=== PATIENT | male | born 1970 | race Caucasian/White ===

== ENCOUNTER 2020-11-25 12:12 | Emergency (ER) | payer BC, SELFPAY ==
--- NOTE | ~2020-11-25 | XR_ITS ---
EXAMINATION: XR chest 2V EXAM DATE: 11/25/2020 12:39 INDICATION: Chest pressure. TECHNIQUE: Frontal and lateral projections of the chest obtained and reviewed. There is no prior nathalie dy for comparison. FINDINGS: The lungs are clear. There are no pleural effusions. The cardiomediastinal silhouette is within normal limits. There is no pneumothorax suspected. The bones and soft tissues are unremarkab le. IMPRESSION: No acute cardiopulmonary findings. Reviewed, dictated and finalized at location A.
--- NOTE | 2020-11-25 12:17 | ED.URI ---
HPI - URI/Sore Throat General Chief Complaint: Shortness of Breath/Dyspnea Stated Complaint: sob/light headed/sinus pressure Time Seen by Provider: 11/25/20 12:17 Source: patient and RN notes reviewed Mode of arrival: ambulatory Limitations: no limitations History of Present Illness HPI Narrative: 50-year-old male presents to the [facility] with complaints of shortness of breath, lightheadedness and sinus pressure. Patient states that he was playing pickle ball this morning when he just could not catch his breath. Had some chest tightness and lightheadedness. States he almost felt hung over. Denies any chest pain. Related Data Allergies Allergy/AdvReac Type Severity Reaction Status Date / Time No Known Allergies Allergy Verified 04/02/19 09:15 Review of Systems Review of Systems: All systems reviewed & are unremarkable except as noted in HPI and below Constitutional: Constitutional: Reports no additional constitutional complaints, Denies chills and Denies fever(s) Eyes: Eyes: Reports no additional eye complaints ENT: Reports as per HPI and Reports nasal congestion Cardiovascular: Cardiovascular: Reports as per HPI, Denies chest pain, Reports rapid heart rate and Denies radiating jaw, neck or arm pain Respiratory: Respiratory: Reports as per HPI, Reports dyspnea and Denies wheezing Gastrointestinal: Gastrointestinal: Reports no additional gastrointestinal complaints, Denies abdominal pain, Denies nausea and Denies vomiting Musculoskeletal: Musculoskeletal: Reports no additional musculoskeletal complaints Integumentary/Breasts: Skin/Breast: Reports system reviewed and no additional complaints, except as docu Neurologic: Reports system reviewed and no additional complaints, except as documented Psychiatric: Psychiatric: Reports no additional psychiatric complaints Allergic/Immunologic: Allergic/Immunologic: Reports no additional allergic/immunologic complaints [facility] Past Medical History Medical History (Updated 11/25/20 @ 12:59 by Grace Vicente) Erectile dysfunction Lumbar radiculopathy, right Nasal septal deviation Surgical History Surgical History History of vasectomy Family History Family History Grandparent Family history of cardiovascular disease Social History Social History Smoking status: Never smoker Second hand tobacco smoke exposure: No Alcohol intake: current Comments At the time of my signature, I reviewed and agree with the nursing past medical, surgical, social, and family history. There is no relevant family history pertinent to the patient complaint. Exam Const: General: healthy appearing, no acute distress and alert Nutritional Appearance: well nourished Orientation/consciousness: patient oriented x3 Limitations: no limitations HENMT: Head: normal to inspection Ears: external ears normal, TM's normal bilaterally and EAC's normal Eyes: Conjunctivae: conjunctivae normal Pupils: Equal, round and reactive pupils present Neck: Neck: normal visual inspection, no lymphadenopathy and no meningeal signs Chest: Chest palpation & inspection: normal inspection of the chest Resp: Effort & Inspection: normal respiratory effort and no use of accessory muscles Auscultation: clear to auscultation bilaterally, no crackles, no rales, no rhonchi and no wheezes Cardio: Jugular venous distension: no JVD Rate: tachycardic Rhythm: abnormal rhythm irregularly irregular Peripheral pulses: Peripheral pulses 2+ throughout GI: GI Palp: Yes Soft to palpation and No Tenderness to palpation present (GI) Back/Spine/Pelvis: Back: no CVA tenderness Skin: General skin exam: normal color Rashes: no rashes Wounds: no wounds Neuro: General: patient oriented x3, moves all extremities, no meningeal signs and no focal motor deficits Speech: normal sp
[2020-11-25 12:22] VITALS: BP 119/80; PULSE 94; RESP 16; TEMP 36.1; O2SAT 98
--- NOTE | 2020-11-25 12:25 | ECG_ITS ---
Measurements Intervals [place] Rate: 131 P: MT: 0 QRS: -11 QRSD: 87 T: 11 QT: 272 QTc: 403 Interpretive Statements ATRIAL FIBRILLATION WITH RAPID VENTRICULAR RESPONSE INCOMPLETE RIGHT BUNDLE BRANCH BLOCK BORDERLINE T WAVE ABNORMALITY- INFERIOR LEADS ABNORMAL ECG Electronically Signed On 11-25-2020 13:10:53 CDT by Derrick Vera D.O.
== END 2020-11-25 13:05 | disposition short-term general hospital (02) ==
PROVIDERS: Emergency Provider Nurse Practitioner; PCP Family Medicine
DX: I48.91 Unspecified atrial fibrillation (principal); Z98.52 Vasectomy status
CPT/HCPCS: 71046; 93005; 99215; G0463

== ENCOUNTER 2020-11-25 13:10 | Observation (INO) | payer BC, SELFPAY ==
[2020-11-25] VITALS (12 sets, daily range): BP systolic 111–121; BP diastolic 61–103; PULSE 96–158; RESP 16–24; TEMP 36.1–37.3; O2SAT 97–100; BMI 31.6
--- NOTE | ~2020-11-25 | CT_ITS ---
EXAMINATION: CTA chest PE protocol DATE: 11/25/2020 14:48 INDICATION: Recent long travel. Atrial fibrillation with rapid ventricular response. TECHNIQUE: Computed tomography angiography (CTA) of the chest was performed with 100 mL Omnipaque-350 intravenous contrast timed to evaluate the pulmonary arteries. Coronal maximum intensity projection 3D-reconstructions were created by the technologist. Automated exposure control and iterative reconst ruction technique were employed. Exam dose: 743.83 mGy-cm total exam DLP. COMPARISON: 11/25/2020 PA and lateral chest FINDINGS: There is diagnostic contrast enhancement of the pulmonary arteries and no evidence of pulmo nary embolism. No thoracic aortic aneurysm or dissection. Borderline heart size. No pericardial or pleural effusion. No hilar or mediastinal mass lesion or lym phadenopathy is detected. No pulmonary consolidation or pulmonary mass lesion is evident. Incidentally noted is cholelithiasis. No gallbladder wall thickening or pericholecystic fluid or fat stranding. Normal morphology of the adrenal glands. Small sliding hiatal hernia. Included skeletal structures are unremarkable. IMPRESSION: No evidence of pulmonary embolism Reviewed, dictated and finalized at Location A. Reviewed, dictated and finalized at location B.
--- NOTE | 2020-11-25 13:12 | ECG_ITS ---
Measurements Intervals [place] Rate: 154 P: MD: 0 QRS: -15 QRSD: 96 T: 4 QT: 257 QTc: 412 Interpretive Statements ATRIAL FIBRILLATION WITH RAPID VENTRICULAR RESPONSE CANNOT RULE OUT SEPTAL INFARCT, AGE INDETERMINATE ABNORMAL ECG Electronically Signed On 11-25-2020 15:04:46 CDT by Derrick Vera D.O.
--- NOTE | 2020-11-25 13:12 | ED.CHESTPAIN ---
HPI - Chest Pain General Chief Complaint: Chest Pain Stated Complaint: rapid heart rate Source: patient Mode of arrival: ambulatory Limitations: no limitations History of Present Illness HPI narrative: Patient is a 50-year-old previously healthy male presenting from urgent care for evaluation of palpitations, found to be in atrial fibrillation with rapid ventricular response at the urgent care this morning. Patient reports that he was playing pickle ball, afterwards felt acute onset of palpitations with associated shortness of breath and lightheadedness. No no significant chest pain. Patient states that this may have occurred once previously but resolved on its own and had less severe symptoms with it. Patient has no otherwise known history of cardiac disease. No history of myocardial infarction. Patient does endorse weekly drinking including 6 alcoholic beverages last night. No nausea or vomiting. No history of thyroid disorder. Patient has a history of Covid in 2019. Related Data Home Medications Medication Instructions Recorded Confirmed No Home Medications 11/25/20 11/25/20 Allergies Allergy/AdvReac Type Severity Reaction Status Date / Time No Known Allergies Allergy Verified 11/25/20 13:31 Review of Systems Review of Systems: CONSTITUTIONAL: Denies fever, chills, or sweats. EYES: Denies visual changes, redness, or discharge. ENT: Denies rhinorrhea, congestion, sore throat, or otalgia. CARDIOVASCULAR: Denies chest pain, reports palpitation and denies edema RESPIRATORY: Denies cough, reports dyspnea GASTROINTESTINAL: Denies abdominal pain, nausea, vomiting, or diarrhea. GENITOURINARY: Denies dysuria or hematuria. SKIN: Denies rash or itching. MUSCULOSKELETAL: Denies back pain, joint pain, or myalgia. NEUROLOGIC: Denies headache, numbness, or weakness. Reports lightheadedness PMFSH Past Medical History Medical History (Updated 11/25/20 @ 17:53 by Jackie Alvarez MD) Erectile dysfunction Lumbar radiculopathy, right Nasal septal deviation Surgical History Surgical History History of vasectomy Family History Family History Grandparent Family history of cardiovascular disease Social History Social History Smoking status: Never smoker Second hand tobacco smoke exposure: No Alcohol intake: current Exam Narrative: GENERAL: Awake, alert, conversant HEAD: Normocephalic, atraumatic. EYES: PERRLA and EOMI. ENT: Nares clear, no rhinorrhea or epistaxis. Mucous membranes moist. NECK: Supple. CHEST: No respiratory distress, breathing even and non labored HEART: Tachycardic, irregularly irregular, consistent in atrial fibrillation with rapid ventricular response ABDOMEN:Non distended, non tender EXTREMITIES: Normal range of motion. No edema. SKIN: Warm, dry, no rash. NEURO:No focal deficits. Alert and oriented x3 Course Vital Signs Vital signs: Vital Signs Temperature 37.3 C 11/25/20 13:27 Pulse Rate 158 H 11/25/20 13:27 Respiratory Rate 16 11/25/20 13:27 Blood Pressure 120/90 11/25/20 13:27 Pulse Oximetry 97 11/25/20 13:27 Temperature 37.3 C 11/25/20 13:27 Pulse Rate 115 H 11/25/20 17:54 Respiratory Rate 20 11/25/20 17:54 Blood Pressure 117/103 H 11/25/20 17:54 Pulse Oximetry 98 11/25/20 17:54 MDM - Chest Pain MDM Narrative Medical decision making narrative: Patient sent in for evaluation of palpitations after found to be in A. fib with rapid ventricular response at an urgent care. At the time of presentation, patient is in A. fib with RVR, normotensive. No chest pain. IV access obtained and labs are drawn. Patient was given IV metoprolol, IV fluids, magnesium with improvement in his rate. Patient does have an elevated troponin that up trended on the 3-hour troponin. I did obtain a CTA
[2020-11-25 13:37] LABS: Basophils Percent Auto 0.3 % (0.2-1.2); Eosinophils Percent Auto 0.3 % (0-4.4); Hematocrit 44.3 % (42.0-52.0); Immature Granulocyte Absolute 0.03 K/mm3 (0.00-0.031); Immature Granulocyte Percent A 0.3 % (0-0.5); Lymphocytes Absolute Auto 1.98 K/mm3 (0.9-3.2); Lymphocytes Percent Auto 20.7 % (18.3-44.2); Mean Corpuscular HGB Conc 33.9 g/dl (32-36); Mean Corpuscular Hemoglobin 29.5 pg (26-34); Mean Platelet Volume 9.5 fl (7.4-10.4); Monocytes Absolute Auto 0.8 K/mm3 (0.1-0.6); Monocytes Percent Auto 8.1 % (2.6-8.5); Neutrophils Absolute Auto 6.7 K/mm3 (1.3-6.7); Neutrophils Percent Auto 70.3 % (45.5-73.1); Platelet Count Result 278 k/mm3 (150-375); Red Blood Count 5.09 M/mm3 (4.6-6.20); Red Cell Distribution Width 12.8 % (11.5-14.5); White Blood Count 9.6 K/mm3 (4.5-10.0)
[2020-11-25 13:50] LABS: Anion Gap 14 mmol/L (8-16); Blood Urea Nitrogen 14 mg/dL (9-20); Calcium 10.2 mg/dL (8.4-10.2); Carbon Dioxide 26 mmol/L (22-30); Chloride 102 mmol/L (98-107); Estimated CRCL calculation 101 ml/min; Estimated Glomerular Filt Rate > 60; Glucose 98 mg/dL (65-110); Potassium 4.7 mmol/L (3.4-5.0); Sodium 142 mmol/L (137-145)
[2020-11-25 13:51] LABS: INR 0.9; Prothrombin Time 12.1 Seconds (11.1-14.7)
[2020-11-25 13:52] LABS: Partial Thromboplastin Time 25.7 SECONDS (22.3-36.8)
[2020-11-25] MEDS: SODIUM CHLORIDE 0.9% IV 1,000 ML 999 ML IV CONT (13:54)
[2020-11-25] MEDS: MAGNESIUM SULF 2 GM/WATER 50ML 2 GM/50 ML BAG IVPB (13:54)
[2020-11-25] MEDS: METOPROLOL TARTRATE INJ 5 MG/5 ML VIAL IV PUSH ×2 (13:54→15:40)
[2020-11-25 14:00] LABS: NT Pro B Type Natriuretic Pept 63 pg/mL (5-100)
[2020-11-25 14:35] LABS: Troponin I 0.054 ng/mL (0.000-0.034)
[2020-11-25] MEDS: ASPIRIN 81 MG CHEWABLE TABLET 324 MG PO (15:39)
[2020-11-25] MEDS: METOPROLOL TARTRATE 25 MG TABLET PO (15:39)
[2020-11-25 16:03] LABS: Troponin I 0.074 ng/mL (0.000-0.034)
--- NOTE | 2020-11-25 18:16 | ADMGEN ---
This patient, Amrit Maher, was admitted to IMU Room 203-01. Patient/family oriented to hospital policies and general routines including ID bracelet, bed and alarms, visiting hours, pain management, procedures, bathroom and other care routines, personal items, smoking policy, room service/diet, and visiting hours. Information on how to activate the Rapid Response Team has been discussed. Patient/Family are encouraged to report perceived risks to care and to ask questions if they do not understand what they are told or what they should do.
--- NOTE | 2020-11-25 20:17 | PM.IMHP ---
H&P: HPI History of Present Illness Date/Time: 11/25/20 20:17 this is a 50-year-old male patient to has no previous medical history. The patient admits to using tobacco products but he chews tobacco and has been using nicotine gum. The patient stated that today he was playing pickle ball when he became very short of breath. The patient stated this was similar to when he was tested positive for COVID back in December of 2019. The patient stated that he felt palpitations and was short of breath. The patient stated that he did not have any chest pain. He also felt dizzy at the time. He denies any fever chills. Nausea or vomiting or diarrhea. The patient admits to drinking 6 beers yesterday and does occasionally use some marijuana but does not use any other street drugs. Patient presented to the urgent care today for evaluation of palpitations. The patient was found to be in atrial fibrillation with rapid ventricular response at the urgent care this morning. The patient initially was given Decadron, IV fluids, magnesium sulfate, and metoprolol IV push x2 and oral metoprolol. The patient remains in the 120-1 30s. One time he got up to 140-150. This was after receiving the metoprolol. I did give the patient IV push Cardizem and ordered a drip. Troponin was 0.05 and then 0.074. CTA of the chest was read as no evidence of pulmonary embolism. Chest x-ray was read as no acute cardiopulmonary finding. The patient is being admitted to observation status on the date of service of 11/25/2020 Chief Complaint: Palpitations Review of Systems Review of Systems: All systems reviewed & are unremarkable except as noted in HPI and below Constitutional: Constitutional: Reports as per HPI and Reports no additional constitutional complaints Eyes: Eyes: Reports as per HPI and Reports no additional eye complaints ENT: Reports system reviewed and no additional complaints, except as documented and Reports Normal hearing present Cardiovascular: Cardiovascular: Reports no additional cardiovascular complaints Respiratory: Respiratory: Reports no additional respiratory complaints and Reports no additional respiratory complaints Gastrointestinal: Gastrointestinal: Reports as per HPI and Reports no additional gastrointestinal complaints Musculoskeletal: Musculoskeletal: Reports no additional musculoskeletal complaints Integumentary/Breasts: Skin/Breast: Reports system reviewed and no additional complaints, except as docu and Reports as per HPI Neurologic: Reports system reviewed and no additional complaints, except as documented, Reports as per HPI and Reports Normal hearing present Psychiatric: Psychiatric: Reports no additional psychiatric complaints and Reports as per HPI Endocrine: Endocrine: Reports no additional endocrine complaints Hematologic/Lymphatic: Hematologic/Lymphatic: Reports no additional hematologic/lymphatic complaints Allergic/Immunologic: Allergic/Immunologic: Reports no additional allergic/immunologic complaints [facility] Past Medical History Medical History (Updated 11/25/20 @ 20:29 by Rima Allen NP) Erectile dysfunction Lumbar radiculopathy, right Nasal septal deviation Surgical History Surgical History (Updated 11/25/20 @ 20:22 by Rima Allen NP) History of nasal septoplasty History of vasectomy Family History Family History (Updated 11/25/20 @ 20:23 by Rima Allen NP) Grandparent Family history of cardiovascular disease Father Hypertension Social History Social History Social History: 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 His is the durable power defense attorney for healthcare. The patient desires to be a full code. The patient states that he does occasionally use marijuana. He does not use any other street drugs. The patient has been using nicotine gum as he has been using chewing tobacco for many years.
[2020-11-25] MEDS: ACETAMINOPHEN 325 MG TABLET 650 MG PO (20:52)
[2020-11-25] MEDS: dilTIAZem HCl INJ 25 MG/5 ML VIAL IV PUSH (20:53)
--- NOTE | 2020-11-25 21:19 | PM.CNCAR ---
Assessment and Plan Assessment and plan (1) Atrial fibrillation with rapid ventricular response: Code(s): I48.91 - Unspecified atrial fibrillation Status: Acute Assessment and Plan: Patient admitted with AFib RVR, possibly starting this morning although since the patient does not sense any heart irregularity I cannot be sure. May have had an episode a couple months ago while cutting grass when he felt very dyspneic. Had heavy alcohol intake yesterday which may be contributing, and he does snore some needs to be screened for sleep apnea. However he does not appear to have any underlying cardiovascular disease. Discussed atrial fibrillation, causes, and treatment in detail. We will see how he does overnight then we can proceed with a DIEUDONNE guided cardioversion versus rate control and anticoagulation, follow-up in the office and see if patient may need an elective outpatient cardioversion if sinus rhythm is not restored pharmacologically. Continue Lovenox, probably switch to Xarelto tomorrow evening Echo Change IV Cardizem to p.o. Cardizem 30 mg Q8H (2) Elevated troponin: Code(s): R77.8 - Other specified abnormalities of plasma proteins Status: Acute Assessment and Plan: Minimally elevated troponin, due to AFib RVR, no evidence of ACS. (3) Snoring: Code(s): R06.83 - Snoring Status: Acute Assessment and Plan: R/O MAHAD w/ Apnea Link (4) Medication management: Code(s): Z79.899 - Other snf (current) drug therapy Status: Acute Assessment and Plan: History of Present Illness History of Present Illness Consult date/time: 11/25/20 21:19 Requesting physician: Rima Allen NP Reason For Visit: a fib with rvr,elevated troponin Narrative: Mr. Amrit Maher is a 50-year-old white male whom I was asked to see at the request of the hospitalist for my advice and opinion regarding his new onset AFib, in consultation. Mr. Maher was playing pickleball this morning and felt very bad with that with shortness of breath, and being significantly a out of breath. He sort of felt his heart pounding but that did not seem to be unusual with exercise or activity. He thought something was wrong with his lungs and went to Urgent Care where he was found to have AFib RVR. He did not really notice any palpitations or chest pain. Yesterday seemed a normal day for him and he last played pickleball about 1/2 weeks ago. He did note that when he cut the grass about 2 months ago he had unusual CHEN. He was admitted and started on a Cardizem drip and Lovenox. He is feeling well now. The patient does snore a lot but no known sleep apnea. He did have about 6 drinks yesterday but normally does not drink excessively and drinks just on weekends. Two cups of coffee daily. No hypertension, diabetes, elevated cholesterol, history of thyroid disease, or bleeding problems. His mother has atrial fibrillation. Review of Systems Constitutional: Constitutional: Reports fatigue and Reports lethargy Eyes: Eyes: Reports no additional eye complaints ENT: Denies epistaxis Cardiovascular: Cardiovascular: Denies chest pain, Denies diaphoresis, Denies pedal edema, Denies leg edema, Denies lightheadedness and Reports palpitations Respiratory: Respiratory: Denies cough, Reports dyspnea and Reports dyspnea on exertion Gastrointestinal: Gastrointestinal: Denies abdominal pain and Denies hematochezia Genitourinary: Genitourinary: Denies hematuria Musculoskeletal: Musculoskeletal: Reports arthralgias (Knee pain) Integumentary/Breasts: Skin/Breast: Denies rash Neurologic: Denies confusion Psychiatric: Psychiatric: Denies behavioral changes PMFSH Past Medical History Medical
[2020-11-25] MEDS: ENOXAPARIN 120 MG/0.8 ML SYRINGE 110 MG SUB-Q (21:24)
[2020-11-25] MEDS: dilTIAZem HCL 30 MG TABLET PO (23:15)
[2020-11-26] VITALS (7 sets, daily range): BP systolic 120–128; BP diastolic 73–74; PULSE 73–94; RESP 16–20; TEMP 36.3–36.4; O2SAT 97–100
--- NOTE | 2020-11-26 | ECHO_ITS ---
Patient Info Name: Amrit Maher Age: 50 years : 1970 Gender: Male Ht: 73 in Wt: 239 lbs BSA: 2.39 m2 HR: 65 bpm BP: 111 / 61 mmHg Heart Rhythm: Sinus Rhythm Exam Date: 11/26/2020 9:27 AM Exam Location: [facility] Patient Status: Outpatient Admit Date: 11/25/2020 Staff Ordering Physician: Rima Allen NP Skein Tier: Damion Iglesias RDCS, RT Attending Provider: Mana Kilpatrick MD Referring Physician: Tiffany JOSÉ; Exam Type: CA echo doppler color flow Study Info Indications I48.0 - Paroxysmal atrial fibrillation Complete two-dimensional, color flow and Doppler transthoracic echocardiogram is performed. Strain analysis performed. Summary 1. Complete two-dimensional, color flow and Doppler transthoracic echocardiogram is performed. 2. Left ventricular systolic function and diastolic function are normal with no regional wall motion abnormalities with an estimated ejection fraction of 60-65%. Calculated ejection fraction 59% Mild left ventricular hypertrophy. Global longitudinal strain is borderline diminished at -17%. 3. Left atrial chamber dimension is mildly enlarged. 4. No significant valve disease. 5. Normal sinus rhythm. Left Ventricle Left ventricular chamber dimension is normal. Left ventricular systolic function is normal, estimated at 60-65%. There is mildly increased left ventricular wall thickness. Left ventricular septal wall motion is normal. The left ventricular diastolic function is normal. Global longitudinal strain is abnormal at -17 %. Left ventricular systolic function and diastolic function are normal with no regional wall motion abnormalities with an estimated ejection fraction of 60-65%. Calculated ejection fraction 59% Mild left ventricular hypertrophy. Global longitudinal strain is borderline diminished at -17%. Right Ventricle Right ventricular chamber dimension is normal. Right ventricular systolic function is normal. Left Atria Left atrial chamber dimension is mildly enlarged. Right Atria Right atrial chamber dimension is normal. Aortic Valve The aortic valve is trileaflet. There is no aortic valve sclerosis. There is no aortic valve stenosis. There is no aortic valve regurgitation. Pulmonic Valve The pulmonic valve is normal. There is no pulmonic valve stenosis. There is trace pulmonic regurgitation. Mitral Valve The mitral valve has normal leaflets. There is no mitral valve stenosis. There is trace mitral valve regurgitation. Tricuspid Valve The tricuspid valve leaflets are normal. There is no significant tricuspid valve stenosis. There is trace tricuspid valve regurgitation. No pulmonary hypertension, estimated pulmonary arterial systolic pressure is Empty. Pericardium/Pleural The pericardium appears normal. There is no pericardial effusion. Inferior Vena Cava Normal inferior vena cava with >50% collapse upon inspiration consistent with Empty right atrial pressure, Empty. Aorta The aortic root size at the sinus of Valsalva is normal. The prox ascending aorta size is normal. Left Ventricular Outflow Tract Name Value Normal LVOT 2D LVOT Diameter 2.3 cm LVOT Doppler
[2020-11-26] MEDS: dilTIAZem HCL 30 MG TABLET PO ×2 (06:32→12:13)
[2020-11-26 06:48] LABS: Basophils Percent Auto 0.4 % (0.2-1.2); Eosinophils Absolute Auto 0.2 K/mm3 (0-0.3); Hematocrit 42.4 % (42.0-52.0); Hemoglobin 14.6 g/dL (14.0-18.0); Immature Granulocyte Absolute 0.01 K/mm3 (0.00-0.031); Immature Granulocyte Percent A 0.1 % (0-0.5); Lymphocytes Absolute Auto 3.17 K/mm3 (0.9-3.2); Mean Corpuscular HGB Conc 34.4 g/dl (32-36); Mean Corpuscular Hemoglobin 29.6 pg (26-34); Mean Platelet Volume 9.5 fl (7.4-10.4); Monocytes Absolute Auto 0.7 K/mm3 (0.1-0.6); Monocytes Percent Auto 9.6 % (2.6-8.5); Neutrophils Absolute Auto 3.2 K/mm3 (1.3-6.7); Neutrophils Percent Auto 43.9 % (45.5-73.1); Platelet Count Result 274 k/mm3 (150-375); Red Blood Count 4.93 M/mm3 (4.6-6.20); Red Cell Distribution Width 12.7 % (11.5-14.5); White Blood Count 7.4 K/mm3 (4.5-10.0)
[2020-11-26 07:03] LABS: Lactic Acid Reflex 1.4 mmol/L (0.7-2.1)
[2020-11-26 07:04] LABS: Alanine Aminotransferase 50 U/L (4-50); Albumin Level 4.8 g/dL (3.5-5.1); Alkaline Phosphatase 56 U/L (38-126); Anion Gap 9 mmol/L (8-16); Aspartate Amino Transferase 32 U/L (17-59); Bilirubin,Total 0.4 mg/dL (0.2-1.3); Blood Urea Nitrogen 17 mg/dL (9-20); Calcium 9.1 mg/dL (8.4-10.2); Carbon Dioxide 30 mmol/L (22-30); Chloride 103 mmol/L (98-107); Estimated CRCL calculation 104 ml/min; Estimated Glomerular Filt Rate > 60; Glucose 119 mg/dL (65-110); Magnesium 2.1 mg/dL (1.6-2.3); Potassium 4.9 mmol/L (3.4-5.0); Sodium 142 mmol/L (137-145)
--- NOTE | 2020-11-26 07:46 | ECG_ITS ---
Measurements Intervals [place] Rate: 75 P: 31 [place]: 143 QRS: -3 QRSD: 106 T: 13 QT: 386 QTc: 434 Interpretive Statements SINUS RHYTHM DELAYED PRECORDIAL R/S TRANSITION BORDERLINE ECG Electronically Signed On 11-26-2020 9:11:17 CDT by Derrick Vera D.O.
[2020-11-26] MEDS: ENOXAPARIN 120 MG/0.8 ML SYRINGE 110 MG SUB-Q (08:13)
--- NOTE | 2020-11-26 08:56 | PM.PNCARD ---
Progress Note: A&P Assessment and Plan (1) Atrial fibrillation with rapid ventricular response: Code(s): I48.91 - Unspecified atrial fibrillation Status: Acute Assessment and Plan: Converted to NSR this morning. OK for discharge after Echo. Has outpatient follow-up visit scheduled. CHADS2 Vasc score is 0, will change patient to aspirin 325 mg daily. Will change Cardizem to: Cardizem CD 120 mg daily. Review treatment of atrial fibrillation; aggressiveness of treatment depends on frequency of AFib and severity of symptoms. Avoid excessive alcohol Consider getting the [employer] balbina or an [employer] smart watch, etc, to monitor for AFib at home. (2) Elevated troponin: Code(s): R77.8 - Other specified abnormalities of plasma proteins Status: Acute Assessment and Plan: Secondary to AFib, no ACS (3) Snoring: Code(s): R06.83 - Snoring Status: Acute Assessment and Plan: Apnea link was strongly positive. Discussed possible sleep apnea with the patient Will need referral to a sleep medicine doctor for further evaluation and treatment. Subjective Date/time seen: 11/26/20 08:56 Interval history: FU new onset a fib RVR Date of Service 11/26/2020: Pt tired but otherwise feeling well. Converted to NSR at 5;15 a.m. Off Cardizem gtt, on po diltiazem Apnea Link was strongly suggestive of MAHAD. Review of Systems Constitutional: Constitutional: Reports fatigue Comments: Didn't sleep well ENT: Reports system reviewed and no additional complaints, except as documented Cardiovascular: Cardiovascular: Denies chest pain, Denies leg edema, Denies lightheadedness and Denies palpitations Respiratory: Respiratory: Denies dyspnea and Denies dyspnea on exertion Gastrointestinal: Gastrointestinal: Reports no additional gastrointestinal complaints Genitourinary: Genitourinary: Reports no additional male genitourinary complaints Musculoskeletal: Musculoskeletal: Reports no additional musculoskeletal complaints Integumentary/Breasts: Skin/Breast: Reports system reviewed and no additional complaints, except as docu Exam Const: General: comfortable and no acute distress Eyes: EOM: EOMs intact bilaterally Neck: Neck: supple Resp: Effort & Inspection: normal respiratory effort Cardio: Rate: regular rate Rhythm: regular rhythm GI: Inspection: non-distended GI Palp: Yes Soft to palpation Skin: General skin exam: normal color Neuro: General: gait normal Cognition (Neuro): normal cognition Speech: normal speech Extrem: General: no edema Psych: Mental Status: mental status grossly normal Objective Data Vital Signs Vital Signs: Vital Signs - 24 hr 11/25/20 13:27 11/25/20 13:54 11/25/20 15:39 Temperature 99.2 F Pulse Rate 158 H 157 H 124 H Respiratory Rate 16 Blood Pressure 120/90 Pulse Oximetry 97 11/25/20 15:40 11/25/20 17:06 11/25/20 17:07 Temperature Pulse Rate 136 H 111 H 112 H Respiratory Rate 24 H Blood Pressure 120/76 Pulse Oximetry 98 11/25/20 17:54 11/25/20 18:32 11/25/20 18:33 Temperature 97.4 F L Pulse Rate 115 H 125 H 108 H Respiratory Rate 20 22 H Blood Pressure 117/103 H 121/77 Pulse Oximetry 98 100 11/25/20 20:00 11/25/20 22:00 11/25/20 23:22 Temperature 97 F L 97.7 F Pulse Rate 129 H 96 98 Respiratory Rate 20 20 Blood Pressure 112/63 111/61 Pulse Oximetry 99 100 11/26/20 00:00 11/26/20 02:00 11/26/20 04:00 Temperature 97.5 F L Pulse Rate 85 83 73 Respiratory Rate 20 Blood Pressure 124/73 Pulse Oximetry 100 11/26/20 06:00 Temperature Pulse Rate 94 Respiratory Rate Blood Pressure Pulse Oximetry Intake/Output Intake/Output: Intake & Output 11/23/20 11/24/20 11/25/20 11/26/20 23:59 23:59 23:59 23:59 Intake Total 1050 Output Total 650 Balance 1050 -650 Meds/Resul
--- NOTE | 2020-11-26 17:31 | PM.DS ---
DS: Admitting Diagnosis Discharge Date 11/26/20 Admitting Diagnosis Atrial fibrillation with rapid ventricular response DS: Discharge Diagnosis Discharge Diagnosis (1) Atrial fibrillation with rapid ventricular response: Code(s): I48.91 - Unspecified atrial fibrillation Status: Acute Assessment and Plan: The patient is AFib with RVR heart rate some 120 so. Patient failed metoprolol. So I started him on a Cardizem drip. Cardiology has been consulted. Although his Antonio Vasc score is low will start him on subcu Lovenox for now. (2) Elevated troponin: Code(s): R77.8 - Other specified abnormalities of plasma proteins Status: Acute Assessment and Plan: Most likely is related to the AFib RVR. Continue to trend. DS: Summary Hospital Course Reason for hospitalization: Palpitations Shortness of breath Hospital Course: This is a 50-year-old gentleman without prior significant medical condition. The patient admits to using tobacco products but he chews tobacco and has been using nicotine gum. The patient stated that today he was playing pickle ball when he became very short of breath. The patient stated this was similar to when he was tested positive for COVID back in December of 2019. The patient stated that he felt palpitations and shortness of breath. He did not have any chest pain. He also felt dizzy at the time. He denies any fever chills. Nausea or vomiting or diarrhea. The patient admits to drinking 6 beers yesterday and does occasionally use some marijuana but does not use any other street drugs. Patient presented to the urgent care today for evaluation of palpitations. The patient was found to be in atrial fibrillation with rapid ventricular response at the urgent care this morning. Hospital course The patient initially was given Decadron, IV fluids, magnesium sulfate, and metoprolol IV push x2 and oral metoprolol. The patient remains in the 120-1 30s. One time he got up to 140-150. This was after receiving the metoprolol. He receives IV push Cardizem followed by cardizem drip. Troponin was 0.05 and then 0.074. CTA of the chest was read as no evidence of pulmonary embolism. Chest x-ray was read as no acute cardiopulmonary finding. The patient is being admitted to observation status on the date of service of 11/25/2020. This morning, he converted to NSR this morning. Echocardogram with mild dilatation of the left atria. He is scheduled for cardiology follow-up visit as an outpatient. CHADS2 Vasc score is 0, he will be discharged on aspirin 325 mg daily. New medication Cardizem CD 120 mg daily. Review treatment of atrial fibrillation; aggressiveness of treatment depends on frequency of AFib and severity of symptoms. Avoid excessive alcohol Consider getting the [employer] mobile balbina or an [employer] smart watch, etc, to monitor for AFib at home. Patient referred to sleep medicine for a sleep study test. Time spent discussing smoking cessation with patient: 3 to 10 minutes Status at Discharge Functional status at discharge: independent ambulation Overall status at discharge: patient is back to baseline Time Spent with Patient Time attestation: Total time spent providing and/or coordinating discharge services: Time spent: Less than 30 minutes Exam Const: General: cooperative, healthy appearing, comfortable, no acute distress, well developed, alert, awake and Physically active Nutritional Appearance: average body habitus and well nourished Orientation/consciousness: oriented to person, oriented to place, oriented to time and patient oriented x3 Limitations: no limitations HENMT: Head: normal to inspection, No palpable skull fracture present, normocephalic and atraumatic Ears: hearing grossly normal bilaterally and external ears normal General nose exam: Normal external nose present Eyes: General: appearance normal, both eyes and all related structures Alignment and Position: alignment normal Perio
== END 2020-11-26 14:15 | disposition home or self-care (01) ==
LOC: ANHED 13:30 → ANHIMU 16:45
PROVIDERS: Nurse Practitioner; Admitting Provider Internal Medicine; Emergency Provider Emergency Medicine; PCP Family Medicine; Visit Provider Internal Medicine
DX: I48.91 Unspecified atrial fibrillation (principal); R77.8 Other specified abnormalities of plasma proteins; R06.02 Shortness of breath; F17.290 Nicotine dependence, other tobacco product, uncomplicated; R06.83 Snoring; Z79.899 Other long term (current) drug therapy
CPT/HCPCS: 36415; 71046; 71275; 80048; 80053; 83605; 83735; 83880; 84443; 84484; 85025; 85610; 85730; 93005; 93306; 94762; 96361; 96365; 96366; 96367; 96372; 96375; 96376; 99285; A9270; G0378; J1650; J3475; J7030; Q9967

== ENCOUNTER → 2022-02-08 11:19 | Outpatient (CLI) | payer BC, SELFPAY ==
--- NOTE | ~2022-02-08 | XR_ITS ---
EXAMINATION: XR chest 2V DATE: 02/08/2022 12:05 INDICATION: History of atrial fibrillation TECHNIQUE: PA and lateral views of the chest are obtained. COMPARISON: 11/25/2020 FINDINGS: The lungs are free of acute opacities. No pleural effusion or pneumothorax. The cardiomedia stinal silhouette is normal. There is mild thoracic spondylosis. IMPRESSION: 1. No acute cardiopulmonary abnormality. Reviewed, dictated and finalized at location A. [facility]
== END ==
PROVIDERS: PCP Family Medicine; Visit Provider Family Medicine
DX: Z86.79 Personal history of other diseases of the circulatory system (principal); Z01.818 Encounter for other preprocedural examination
CPT/HCPCS: 71046

== ENCOUNTER 2022-02-16 10:59 | Outpatient (CLI) | payer BC, SELFPAY ==
--- NOTE | 2022-02-16 11:27 | ECG_ITS ---
Measurements Intervals [place] Rate: 78 P: 40 CT: 156 QRS: 14 QRSD: 108 T: 10 QT: 352 QTc: 402 Interpretive Statements SINUS RHYTHM NORMAL ECG COMPARED TO ECG 11/26/2020 08:54:25 NO SIGNIFICANT CHANGES Electronically Signed On 02-16-2022 15:34:47 GEOGRAPHY FACULTY MEMBER by Seven Rapp M.D.
[2022-02-16 12:29] LABS: SARS-CoV-2 RNA PCR Negative
== END 2022-02-16 11:00 | disposition home or self-care (01) ==
PROVIDERS: PCP Family Medicine; Visit Provider Family Medicine
DX: Z01.818 Encounter for other preprocedural examination (principal); Z76.89 Persons encountering health services in other specified circumstances; Z20.822 Contact with and (suspected) exposure to COVID-19
CPT/HCPCS: 93005; U0003; U0005

== ENCOUNTER 2023-11-01 01:14 | Day surgery (SDC) | payer BC, SELFPAY ==
[2023-10-12 09:01] VITALS: BMI 30.4
[2023-11-01 09:23] VITALS: BP 129/87; PULSE 84; RESP 16; TEMP 36.6; O2SAT 100
[2023-11-01] MEDS: LACTATED RINGERS 1,000 ML 150 ML IV CONT (09:33)
--- NOTE | 2023-11-01 10:31 | WPDANESEPPF ---
Anes - Initial Pre Proc Eval Procedure: Operation Date: 11/01/23 10:30 Proposed Procedures p Screening Colonoscopy - Dimitri Milton DO Date/Time: 11/01/23 10:31 Surgeon: Dimitri Milton DO Pre Op Diagnosis: Screening for malignant neoplasm of colon Patient Data Age: 53 Gender: M Height: 1.85 m Weight: 106.7 kg Last Vital Signs Temp 98 F 11/01/23 09:23 Pulse 84 11/01/23 09:23 Resp 16 11/01/23 09:23 BP 129/87 11/01/23 09:23 Pulse Ox 100 11/01/23 09:23 O2 Del Method Room Air 11/01/23 09:23 Allergies Allergy/AdvReac Type Severity Reaction Status Date / Time No Known Allergies Allergy Verified 11/01/23 09:22 Home Medications Medication Instructions Recorded Confirmed Type tadalafil 5 mg tablet (Cialis) 5 mg PO DAILY PRN sexual activity 04/07/23 11/01/23 Rx #30 tabs Patient hx anesthesia problems: none Family hx anesthesia problems: none Results Review: All pre-operative results and documents have been reviewed as part of the pre-operative evaluation. 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 His is the durable power claim attorney for healthcare. The patient desires to be a full code. The patient states that he does occasionally use marijuana. He does not use any other street drugs. The patient has been using nicotine gum as he has been using chewing tobacco for many years. The patient occasionally drinks alcohol and he last drank last night had 6 beers. Enjoys all sports. Smoking status: Never smoker Second hand tobacco smoke exposure: No Alcohol intake: current Drinks per week: 6 Substance use: current Substance use type: marijuana Lack of Transportation: No Lack of Food: Never True Current Housing: I Have Housing Concerned About Future Housing: No Difficulty Paying Gas/Electric Bills: No Difficulty Paying for Meds: No Currently Unemployed: No Education: Associate Degree Difficulty w/ Childcare or Family Care: No Living arrangements: with family Gender identity (if verbalized by the patient): Male Sexual Orientation (if Verbalized by the Patient): Straight or Heterosexual Spiritual care concerns: No Agree to blood products: Yes Anes - Eval Final PreProcedure Day of Procedure 11/01/23 10:31 Patient weight: normal Heart: regular rate and rhythm Lungs: clear to auscultation Airway: Mallampati scale class II Neurological: alert and oriented Last oral intake: >/= 8 hours Emergent: no Anesthetic plan: proceed Anesthesia type and monitoring: general GIVS and standard monitoring Results Review: All pre-operative results and documents have been reviewed as part of the pre-operative evaluation. Informed Consent: The patient's anesthetic plan and its attendant risks and benefits were discussed with the patient/family/POA. Questions were solicited and answers provided to the satisfaction of the patient/family/POA.
--- NOTE | 2023-11-01 10:36 | PM.IMHP ---
H&P: HPI History of Present Illness Date/Time: 11/01/23 10:36 Chief Complaint: Screening for colorectal cancer Narrative: this is a 53-year-old man who presents for colonoscopy. He has never had a colonoscopy before. He denies any family history of colon cancer. He denies hematochezia or melena. Review of Systems Review of Systems: All systems reviewed & are unremarkable except as noted in HPI and below Constitutional: Constitutional: Denies chills, Denies fever(s), Denies headache(s) and Denies weight loss Eyes: Eyes: Denies change in vision ENT: Denies dizziness, Denies headache(s), Denies neck mass and Denies throat swelling Cardiovascular: Cardiovascular: Denies chest pain, Denies lightheadedness and Denies dyspnea Respiratory: Respiratory: Denies cough, Denies dyspnea and Denies wheezing Gastrointestinal: Gastrointestinal: Denies abdominal pain, Denies change in bowel habits, Denies nausea and Denies vomiting Genitourinary: Genitourinary: Denies hematuria and Denies dysuria Musculoskeletal: Musculoskeletal: Reports as per HPI Integumentary/Breasts: Skin/Breast: Reports as per HPI Neurologic: Denies dizziness and Denies headache(s) Allergic/Immunologic: Allergic/Immunologic: Denies throat swelling and Denies wheezing PMF Past Medical History Medical History Elevated blood pressure reading Erectile dysfunction Lumbar radiculopathy, right Nasal septal deviation MAHAD (obstructive sleep apnea) Prediabetes Surgical History Surgical History History of nasal septoplasty History of vasectomy Family History Family History Grandparent Family history of cardiovascular disease Father Hypertension Social History Social History Social History: 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 His is the durable power mergers and acquisitions attorney for healthcare. The patient desires to be a full code. The patient states that he does occasionally use marijuana. He does not use any other street drugs. The patient has been using nicotine gum as he has been using chewing tobacco for many years. The patient occasionally drinks alcohol and he last drank last night had 6 beers. Enjoys all sports. Smoking status: Never smoker Second hand tobacco smoke exposure: No Alcohol intake: current Drinks per week: 6 Substance use: current Substance use type: marijuana Lack of Transportation: No Lack of Food: Never True Current Housing: I Have Housing Concerned About Future Housing: No Difficulty Paying Gas/Electric Bills: No Difficulty Paying for Meds: No Currently Unemployed: No Education: Associate Degree Difficulty w/ Childcare or Family Care: No Living arrangements: with family Gender identity (if verbalized by the patient): Male Sexual Orientation (if Verbalized by the Patient): Straight or Heterosexual Spiritual care concerns: No Agree to blood products: Yes Meds Home Medications and Allergies Home Medications Medication Instructions Recorded Confirmed Type tadalafil 5 mg tablet (Cialis) 5 mg PO DAILY PRN sexual activity 04/07/23 11/01/23 Rx #30 tabs Allergies Allergy/AdvReac Type Severity Reaction Status Date / Time No Known Allergies Allergy Verified 11/01/23 09:22 Vital Signs Vital Signs - 24 hr 11/01/23 09:23 Temperature 36.6 C Pulse Rate 84 Respiratory Rate 16 Blood Pressure 129/87 Pulse Oximetry 100 Oxygen Delivery Room Air Exam Const: General: no acute distress and alert Orientation/consciousness: patient oriented x3 HENMT: Head: normocephalic and atraumatic Ears: hearing grossly normal bilaterally Face/Nose/Sinus: Normal nares present Mouth: Yes Normal oral
[2023-11-01 11:04] VITALS: BP 115/82; PULSE 77; RESP 21; O2SAT 100
[2023-11-01 11:14] VITALS: BP 115/82; PULSE 71; RESP 20; O2SAT 100
[2023-11-01 11:24] VITALS: BP 125/86; PULSE 65; RESP 20; O2SAT 100
== END 2023-11-01 11:30 | disposition home or self-care (01) ==
PROVIDERS: PCP Family Medicine; Visit Provider Surgery
PROC: 0DJD8ZZ Inspection of Lower Intestinal Tract, Via Natural or Artificial Opening Endoscopic (ICD-10-PCS; CPT 45378; principal; 2023-11-01 10:30)
DX: Z12.11 Encounter for screening for malignant neoplasm of colon (principal); K57.30 Diverticulosis of large intestine without perforation or abscess without bleeding; G47.33 Obstructive sleep apnea (adult) (pediatric); N52.9 Male erectile dysfunction, unspecified; F12.90 Cannabis use, unspecified, uncomplicated
CPT/HCPCS: 45378; J2704; J7120